=== PATIENT | male | born 1980 | race American Indian/Alaskan Native ===

== ENCOUNTER 2020-03-21 23:42 | Emergency (ER) | payer MEDICAID, SELFPAY ==
[2020-03-21 23:53] VITALS: BP 145/72; PULSE 70; RESP 16; TEMP 36.5; O2SAT 97; BMI 36.4
--- NOTE | 2020-03-22 00:11 | ED.GENADULT ---
HPI - General Adult General Chief complaint: Abdominal Pain Stated complaint: Left side abd swollen and feeling strange Time Seen by Provider: 03/21/20 23:50 Source: patient Mode of arrival: Ambulatory Limitations: no limitations History of Present Illness HPI narrative: 39-year-old male here for evaluation of left-sided abdominal pain and swelling and not feeling very well. He actually described it as not a pain but more of a discomfort on the left side of his abdomen. No nausea vomiting. No change in his bowel habits. No urinary symptoms. No fevers. He does have a history of diverticulitis and he states that this feels just like his prior episode of diverticulitis just at a different location. Has not tried anything for symptoms prior to arrival. Related Data Previous Rx's Medication Instructions Recorded amoxicillin-pot clavulanate 875 mg PO BID 14 Days #0 tab 08/03/16 [Augmentin] hydrocodone-acetaminophen 0 tab PO Q6HP PRN #15 tab 08/03/16 ondansetron [Zofran ODT] 4 mg SUBLINGUAL Q6HP PRN #20 odt 08/03/16 amoxicillin-pot clavulanate 1 tab PO BID 10 Days #20 tab 03/22/20 [Augmentin] Allergies Allergy/AdvReac Type Severity Reaction Status Date / Time No Known Allergies Allergy Uncoded 07/30/17 11:46 Review of Systems Constitutional Constitutional: Denies fever(s) Cardiovascular Cardiovascular: Denies chest pain and Denies dyspnea Respiratory Respiratory: Denies dyspnea Gastrointestinal Gastrointestinal: Reports abdominal pain, Denies melena, Denies change in bowel habits, Denies constipation, Denies diarrhea, Denies nausea and Denies vomiting Genitourinary Genitourinary: Denies dysuria Genitourinary: Denies dysuria Musculoskeletal Musculoskeletal: Denies arthralgias and Denies myalgias Integumentary/Breasts Skin/Breast: Denies lesions and Denies rash Neurologic Neurologic: Denies behavioral changes Psychiatric Psychiatric: Denies behavioral changes Hematologic/Lymphatic Hematologic/Lymphatic: Denies easy bleeding and Denies easy bruising Allergic/Immunologic Allergic/Immunologic: Denies urticaria Patient History Medical History Diverticulitis Family History (Updated 06/29/13 @ 00:00 by Christian Mcdonnell MD) Mother Hypertension DDD (degenerative disc disease) Social History Smoking Status: Never smoker Smoking Status: Never smoker alcohol intake frequency: other Substance Use Type: marijuana Exam Initial Vital Signs Initial Vital Signs: Vital Signs Temperature 97.7 F 03/21/20 23:53 Pulse Rate 70 03/21/20 23:53 Respiratory Rate 16 03/21/20 23:53 Blood Pressure 145/72 H 03/21/20 23:53 Pulse Oximetry 97 03/21/20 23:53 Const General: cooperative and comfortable Limitations: mental status not altered HENMT Head: normal to inspection and normocephalic Resp Effort & Inspection: normal respiratory effort GI Inspection: non-distended Palpation: soft, No firm, No guarding and No tender Back/Spine/Pelvis Back: No CVA tenderness Skin Lesions: no lesions Rashes: no rashes Neuro General: patient alert and patient awake Cognition: normal cognition Speech: speech normal Extrem General: normal to inspection and capillary refill normal Psych Appearance: grossly normal and well kempt Course Orders Ordered: Discontinued Medications Amoxicillin/Clavulanate Potassium (Amoxicillin/Clav 875/125 Mg) 1 tab PO NOW ONE Stop: 03/22/20 00:14 Last Admin: 03/22/20 00:16 Dose: 1 tab Documented by: TRACEY Ciprofloxacin (Ciprofloxacin 500 Mg Tablet) 500 mg PO NOW ONE Stop: 03/22/20 00:13 Metronidazole (Metronidazole 500 Mg Tablet) 500 mg PO NOW ONE Stop: 03/22/20 00:13 Vital Signs Vital signs: Vital Signs - 8 hr 03/21/20 23:53 Temperature 97.7 F Pulse Rate 70 Respiratory Rate 16 Blood Pressure 145/72 H Pulse Oximetry 97 Medical Decision Making [facility] Narrative Medical decision making narrative: Patient has a history of diverticulitis and despite in different locations states that his symptoms today feel just like his prior history. His vital signs are unremarkable. He has a very benign exam. Does not have a surgical abdomen. Had a discussion with him regarding his symptoms. Considered other etiologies such as kidney stone, bowel obstruction, appendicitis and other intra-abdominal surgical issues however given his benign presentation and his history of feel that treating him with oral antibiotics hand holding on any radiologic studies is warranted in this particular situation. I did have a discussion with the patient regarding this. He agreed to holding on a CT scan. We did discuss return precautions. He was given his 1st dose of antibiotics here in the emergency department and a prescription for remainder the course. He used Augmentin the last time that seemed to work for him. He expressed understanding and agreement. Discharge Plan Departure Patient Disposition: Home Clinical Impression: Abdominal pain, Diverticulitis Instructions: DI for Diverticulitis Activity Restrictions/Additional Instructions: Recommend you take the antibiotics as directed. Contact your primary provider for follow-up. Return to the emergency department for any new symptoms to include fevers, worsening pain, vomiting or any other new or worsening symptoms Prescriptions: New amoxicillin-pot clavulanate [Augmentin] 875-125 mg tablet 1 tab PO BID 10 Days Qty: 20 RF: 0 No Action hydrocodone-acetaminophen 5 MG/325 MG tablet 0 tab PO Q6HP PRNQty: 15 RF: 0 ondansetron [Zofran ODT] 4 MG tablet,disintegrating 4 mg Sublingual Q6HP PRNQty: 20 RF: 0 amoxicillin-pot clavulanate [Augmentin] 875 MG/125 MG tablet 875 mg PO BID 14 Days Qty: 0 RF: 0 Referrals: Christian Mcdonnell MD [Primary Care Provider] -
[2020-03-22] MEDS: AMOXICILLIN/CLAV 875/125 MG 1 TAB PO (00:16)
== END 2020-03-22 00:20 | disposition home or self-care (01) ==
PROVIDERS: Emergency Provider Emergency Medicine; Family Provider Family Medicine; PCP Family Medicine
DX: R10.9 Unspecified abdominal pain (principal); K57.92 Diverticulitis of intestine, part unspecified, without perforation or abscess without bleeding
CPT/HCPCS: 99281; 99283

== ENCOUNTER → 2020-06-26 09:19 | Outpatient (CLI) | payer MEDICAID, OTHER, SELFPAY ==
[2020-06-26 10:16] LABS: Add Manual Diff / Slide Review NO; Basophils Absolute Auto 100 /uL (0-100); Basophils Percent Auto 1.3 % (0-2); Eosinophils Absolute Auto 400 /uL (0-450); Eosinophils Percent Auto 4.8 % (2-4); Hematocrit 45.4 % (41-53); Hemoglobin 15.2 g/dL (13.5-17.5); Lymphocytes Absolute Auto 3100 /uL (1100-4500); Lymphocytes Percent Auto 33.9 % (25-40); Mean Corpuscular HGB Conc 33.4 % (30-36); Mean Corpuscular Hemoglobin 27.7 PG (26-34); Mean Corpuscular Volume 82.9 fL (80-100); Monocytes Absolute Auto 700 /uL (0-900); Monocytes Percent Auto 7.2 % (3-14); Neutrophils Absolute Auto 4900 /uL (1500-7000); Neutrophils Percent Auto 52.8 % (50-75); Platelet Count 284 X10^3/uL (150-400); Red Blood Cell Count 5.48 X10^6/uL (4.5-5.9); Red Cell Distribution Width 13.6 % (11.6-14.8); White Blood Cell Count 9.2 X10^3/uL (4.5-11.0)
[2020-06-26 11:01] LABS: Alanine Aminotransferase 44 IU/L (<50); Albumin 4.7 g/dL (3.5-5.0); Albumin Globulin Ratio 1.4 (1.0-2.8); Alkaline Phosphatase 125 U/L (38-126); Aspartate Aminotransferase 29 IU/L (17-59); BUN Creatinine Ratio 12.3 (6-22); Bilirubin Total 0.3 mg/dL (0.2-1.3); Blood Urea Nitrogen 10 mg/dL (9-20); Calcium 9.8 mg/dL (8.4-10.2); Carbon Dioxide 30 mmol/L (22-32); Chloride 104 mmol/L (98-107); Estimated Glomerular Filt Rate > 60.0 mL/min (>60); Globulin 3.4 g/dL (1.7-4.1); Glucose 95 mg/dL (70-100); HEMOLYSIS < 15 (0-50); Potassium 4.7 mmol/L (3.4-5.1); Sodium 139 mmol/L (137-145); Total Protein 8.1 g/dL (6.3-8.2)
== END ==
PROVIDERS: Family Provider Family Medicine; PCP Family Medicine; Referring Provider Family Medicine; Visit Provider Family Medicine
DX: R19.00 Intra-abdominal and pelvic swelling, mass and lump, unspecified site (principal)
CPT/HCPCS: 36415; 80053; 85025

== ENCOUNTER 2023-04-25 18:20 | Emergency (ER) | payer OTHER, SELFPAY ==
[2023-04-25] VITALS (7 sets, daily range): BP systolic 141–171; BP diastolic 84–96; PULSE 77–88; RESP 16–18; TEMP 36.6; O2SAT 94–97; BMI 38.0
[2023-04-25 19:02] LABS: Appearance Urine UA CLEAR; Bilirubin Urine UA NEGATIVE (NEGATIVE); Color Urine UA YELLOW; Glucose Urine UA 3+ g/dL (Negative); Ketones Urine UA NEGATIVE (NEGATIVE); Leukocyte Esterase Urine UA NEGATIVE (NEGATIVE); Nitrite Urine UA NEGATIVE (Negative); Occult Blood Urine UA TRACE-INTACT (Negative); Protein Urine UA NEGATIVE (Negative); Urobilinogen Urine UA 0.2 E.U./dL (0.2); pH Urine UA 6.5 (4.5-8.0)
[2023-04-25 19:15] LABS: Bacteria Urine None Seen; Culture Indicated Urine Cult Not Indicated; RBC Urine 0-1/HPF (0-5/HPF); Squamous Epithelial Cell Urine 0-1 /HPF (0-5/HPF); WBC Urine None Seen (0-5/HPF)
--- NOTE | 2023-04-25 20:06 | ED.ABDPAIN ---
HPI - Abdominal Pain General Chief Complaint: Abdominal Pain Stated Complaint: Abdominal Pain Time Seen by Provider: 04/25/23 18:43 History of Present Illness HPI narrative: 42-year-old male who presents with intermittent right upper quadrant abdominal pain is usually worse postprandial for 2 weeks. No other complaints or associated symptoms noted. Patient denies recent illness, no sick contacts or travel. No medications used for symptom relief. Patient arrives via private vehicle. Patient is ambulatory awake, alert, in no apparent distress and maintaining his own airway. Related Data Previous Rx's Medication Instructions Recorded sucralfate 1 gram tablet 1 g PO QID 30 days #120 tabs 04/25/23 Allergies Allergy/AdvReac Type Severity Reaction Status Date / Time No Known Allergies Allergy Uncoded 07/03/20 08:30 Review of Systems Review of Systems Narrative: See HPI for pertinent positives, otherwise review of systems negative Patient History Medical History Diverticulitis Family History Mother Hypertension DDD (degenerative disc disease) Social History marital status: Smoking Status: Never smoker alcohol intake: current (ON OCCASION ) substance use type: does not use Smoking Status: Never smoker alcohol intake frequency: other Substance Use Type: marijuana Exam Initial Vital Signs Initial Vital Signs: Vital Signs Temperature 97.8 F 04/25/23 18:22 Pulse Rate 88 04/25/23 18:22 Respiratory Rate 16 04/25/23 18:22 Blood Pressure 171/94 H 04/25/23 18:22 Pulse Oximetry 97 04/25/23 18:22 Oxygen Delivery Method Room Air 04/25/23 18:22 Const General: cooperative, healthy appearing, comfortable, well developed, well groomed and No acute distress HENMT Head: normal to inspection, normocephalic and atraumatic Nose: external nose normal and nares normal Mouth: oral mucosae normal Throat: posterior oropharynx normal Eyes General: Yes appearance normal, both eyes and all related structures Neck Neck: normal visual inspection Chest Chest: normal inspection of the chest Resp Effort & Inspection: normal respiratory effort, able to speak in complete sentences and no respiratory distress Cardio Rate: regular rate Rhythm: regular rhythm Pulses: radial pulses present GI Inspection: normal to inspection, obesity and no visible herniation Palpation: soft, No guarding, No hernia, No tender and No ascites Other: Exam deferred Skin General: no rashes or lesions noted Neuro General: patient alert, patient awake, patient oriented x3 and moves all extremities Extrem General: normal to inspection, full ROM and capillary refill normal Psych Appearance: grossly normal and well kempt Course Course Course Narrative: See MDM Orders Ordered: ED Orders 04/25/23 18:55 Urinalysis and Microscopic Stat Discontinued Medications Al Hydrox/Mg Hydrox/Simethicone 20 ml/ Lidocaine HCl 15 ml 0 ml PO NOW ONE Stop: 04/25/23 20:06 Last Admin: 04/25/23 20:12 Dose: 35 ml Documented By: ASHLEE Vital Signs Vital signs: Vital Signs - 8 hr 04/25/23 18:22 04/25/23 19:14 04/25/23 19:16 Temperature 97.8 F Pulse Rate 88 81 85 Respiratory Rate 16 18 Blood Pressure 171/94 H 141/84 H Pulse Oximetry 97 94 95 Oxygen Delivery Method Room Air Room Air 04/25/23 19:30 04/25/23 19:30 04/25/23 19:47 Temperature Pulse Rate 81 Respiratory Rate Blood Pressure 159/96 H 163/86 H Pulse Oximetry 95 Oxygen Delivery Method 04/25/23 19:47 04/25/23 20:00 04/25/23 20:00 Temperature Pulse Rate 77 83 Respiratory Rate Blood Pressure 158/84 H Pulse Oximetry 94 94 Oxygen Delivery Method 04/25/23 20:30 04/25/23 20:30 Temperature Pulse Rate 80 Respiratory Rate Blood Pressure 160/90 H Pulse Oximetry 94 Oxygen Delivery Method MDM - Abdominal Pain Differential Diagnosis Differential diagnosis: Likely abdominal pain, constipation, gastroenteritis, pancreatitis, small bowel obstruction and other (Gastritis, esophagitis, biliary colic) Lab Data Lab results narrative: UA not suggestive of UTI. Labs: Lab Results 04/25/23 Range/Units 18:55 Urine Color Yellow Urine Appearance Clear Urine pH 6.5 (4.5-8.0) Ur Specific Jackson 1.010 (1.000-1.035) Urine Protein Negative (Negative) Urine Glucose (UA) 3+ H (Negative) g/dL Urine Ketones Negative (NEGATIVE) Urine Occult Blood Trace-intact (Negative) Urine Nitrate Negative (Negative) Urine Bilirubin Negative (NEGATIVE) Urine Urobilinogen 0.2 (0.2) E.U./dL Ur Leukocyte Esterase Negative (NEGATIVE) Urine RBC 0-1/hpf (0-5/HPF) Urine WBC None seen (0-5/HPF) Ur Squamous Epith Cells 0-1 /hpf (0-5/HPF) Urine Bacteria None seen (None) Ur Culture Indicated? Cult not indicated MDM Narrative Medical decision making narrative: Patient presents with intermittent right upper quadrant abdominal pain that is consistent with gastritis though biliary colic remains in differential along with pancreatitis. Current vital signs are within normal limits/no actual. Patient is afebrile. Pulse oximetry 96% on room air, normal pulse oximetry. Patient appears clinically well and comfortable. Gi cocktail given with marked improvement in symptoms. Imaging and further diagnostic testing offered but declined by patient this patient's symptoms are most likely due to gastritis. Return precautions given. Sucralfate prescription given. PCP follow-up recommended within 1 week. Patient able to ambulate well without assistance at time of discharge. Discharge Plan Departure Patient Disposition: Home Clinical Impression: Gastritis Qualifiers: Gastritis type: unspecified gastritis Chronicity: acute Gastritis bleeding: without bleeding Qualified Code(s): K29.00 - Acute gastritis without bleeding Instructions: DI for Gastritis Prescriptions: New sucralfate 1 gram tablet 1 g PO QID 30 Days Qty: 120 0RF Referrals: Christian Mcdonnell MD [Primary Care Provider] - As soon as possible Stand Alone Forms: Patient Portal/API
[2023-04-25] MEDS: MAG HYDROX/ALUMINUM/SIMETH SUS 20 ML, LIDOCAINE VISCOUS 2% 15 ML PO (20:12)
== END 2023-04-25 20:44 | disposition home or self-care (01) ==
PROVIDERS: Emergency Provider Emergency Medicine; Family Provider Family Medicine; PCP Family Medicine
DX: K29.00 Acute gastritis without bleeding (principal)
CPT/HCPCS: 81001; 99283

== ENCOUNTER 2023-05-09 07:02 | Emergency (ER) | payer OTHER, SELFPAY ==
[2023-05-09] VITALS (11 sets, daily range): BP systolic 144–174; BP diastolic 86–97; PULSE 75–86; RESP 18–29; TEMP 36.6; O2SAT 94–97; BMI 36.1
--- NOTE | 2023-05-09 07:22 | ED_ITS ---
HPI - Abdominal Pain General Chief Complaint: Abdominal Pain Stated Complaint: MART pain Time Seen by Provider: 05/09/23 07:17 Source: patient and EMS Mode of arrival: EMS Limitations: no limitations History of Present Illness HPI narrative: 42-year-old male with history of diverticulitis. Patient presents with complaint of after mid abdominal pain and left flank pain. Patient states pain started in his back 1st and then moved around to the front. He states started yesterday. He has had some episodes on and off for the past several days. Sort of waxes and wanes in intensity. States he has had diverticulitis in the past but is typically lower in his abdomen closer to the groin. He does not normally get back or flank pain with it. Patient states he was here recently for similar symptoms accept that was on the right side of his upper abdomen. At that time he had received Protonix and started on Carafate. Patient denies any fevers or chills. Denies any nausea or vomiting. No chest pain or shortness of breath. Denies any diarrhea constipation, states formed stools with no black or blood. Denies any dysuria, urgency frequency or hematuria. Patient states did try some ibuprofen at home for pain. Denies any daily medications or prescriptions. No prior surgeries. No tobacco, no alcohol, occasional THC but no other recreational drugs. Primary care is Dr. Mcdonnell. He is accompanied by his . Related Data Previous Rx's Medication Instructions Recorded sucralfate 1 gram tablet 1 g PO QID 30 days #120 tabs 04/25/23 amoxicillin 875 mg-potassium 1 tab PO BID 10 days #20 tabs 05/09/23 clavulanate 125 mg tablet Allergies Allergy/AdvReac Type Severity Reaction Status Date / Time No Known Allergies Allergy Uncoded 04/29/23 09:59 Review of Systems Review of Systems ROS Unobtainable: All systems reviewed & are unremarkable except as noted in HPI and below Patient History Medical History Diverticulitis Family History Mother Hypertension DDD (degenerative disc disease) Social History marital status: Smoking Status: Never smoker alcohol intake: current (ON OCCASION ) substance use type: does not use Smoking Status: Never smoker alcohol intake frequency: other Substance Use Type: marijuana Exam Narrative Exam Narrative: GENERAL: Alert and oriented x three, obese male in moderate distress. HEENT: Head normocephalic, atraumatic, EOMI, pupils reactive, face symmetric, moist mucous membranes NECK: Supple, full range of motion CARDIOVASCULAR: Regular rate and rhythm without murmurs, rubs or gallops. RESPIRATORY: Breath sounds equal bilaterally, no wheezes rales or rhonchi. ABDOMEN: Soft, positive for left lower quadrant tenderness with some mild left upper quadrant tenderness. Normoactive bowel sounds all 4 quadrants. No guarding or rebound, rigidity, no mass, nondistended. : No CVA tenderness bilaterally. EXTREMITIES: Normal range of motion, no clubbing or edema. Neurovascularly intact NEUROLOGICAL: Cranial nerves II through XII grossly intact. Moving all extremities SKIN: Warm, dry, no petechiae, no rashes or lesions. Initial Vital Signs Initial Vital Signs: Vital Signs Pulse Rate 85 05/09/23 07:04 Blood Pressure 174/89 H 05/09/23 07:04 Pulse Oximetry 96 05/09/23 07:04 Course Orders Ordered: ED Orders 05/09/23 07:09 Complete Blood Count AUTO DIFF Stat Comprehensive Metabolic Panel Stat Lipase Stat 05/09/23 07:46 CT abdomen pelvis w con Stat 05/09/23 07:56 Urine Microscopic Stat 05/09/23 08:34 US abdomen limited Stat 05/09/23 09:41 BMP [Basic Metabolic Panel] Stat Discontinued Medications Sodium Chloride (Normal Saline 0.9%) 1,000 mls @ 1,000 mls/hr IV BOLUS ONE Stop: 05/09/23 08:21 Last Infusion: 05/09/23 08:33 Dose: Infused Documented By: Admin: 05/09/23 07:38 Dose: 1,000 mls/hr Documented By: JACKELINE Ketorolac Tromethamine (Ketorolac 30 Mg/Ml Vial) 15 mg IV NOW ONE Stop: 05/09/23 07:23 Last Admin: 05/09/23 07:38 Dose: 15 mg Documented By: JACKELINE Pantoprazole Sodium (Pantoprazole 40 Mg Vial) 40 mg IV NOW ONE Stop: 05/09/23 07:23 Last Admin: 05/09/23 07:37 Dose: 40 mg Documented By: CTS Vital Signs Vital signs: Vital Signs - 8 hr 05/09/23 07:04 05/09/23 07:04 05/09/23 07:06 Temperature 97.8 F Pulse Rate 85 79 Respiratory Rate 18 Blood Pressure 174/89 H 174/89 H Pulse Oximetry 96 94 Oxygen Delivery Method Room Air 05/09/23 07:15 05/09/23 07:15 05/09/23 07:30 Temperature Pulse Rate 78 Respiratory Rate 28 H Blood Pressure 165/88 H 151/94 H Pulse Oximetry 94 Oxygen Delivery Method 05/09/23 07:30 05/09/23 07:45 05/09/23 07:45 Temperature Pulse Rate 75 79 Respiratory Rate 26 H Blood Pressure 145/86 H Pulse Oximetry 95 97 Oxygen Delivery Method 05/09/23 08:02 05/09/23 08:03 05/09/23 08:03 Temperature Pulse Rate 82 82 Respiratory Rate 23 Blood Pressure 151/91 H Pulse Oximetry 96 96 Oxygen Delivery Method 05/09/23 08:15 05/09/23 08:15 05/09/23 08:30 Temperature Pulse Rate 83 Respiratory Rate 29 H Blood Pressure 144/86 H 152/92 H Pulse Oximetry 95 Oxygen Delivery Method 05/09/23 08:30 05/09/23 08:45 05/09/23 08:45 Temperature Pulse Rate 76 80 Respiratory Rate 27 H 28 H Blood Pressure 154/97 H Pulse Oximetry 94 95 Oxygen Delivery Method 05/09/23 10:47 05/09/23 10:47 Temperature Pulse Rate 86 Respiratory Rate Blood Pressure 156/94 H Pulse Oximetry 95 Oxygen Delivery Method MDM - Abdominal Pain Lab Data 05/09/23 07:09 05/09/23 09:41 Labs: Lab Results 05/09/23 05/09/23 05/09/23 Range/Units 07:09 07:56 09:41 WBC 14.1 H (4.5-11.0) X10^3/uL RBC 5.56 (4.5-5.9) X10^6/uL Hgb 14.6 (13.5-17.5) g/dL Hct 44.9 (41-53) % MCV 80.7 (80-100) fL MCH 26.2 (26-34) PG MCHC 32.5 (30-36) % RDW 13.9 (11.6-14.8) % Plt Count 329 (150-400) X10^3/uL Neut % (Auto) 75.7 H (50-75) % Lymph % (Auto) 17.1 L (25-40) % Clare % (Auto) 5.6 (3-14) % Eos % (Auto) 1.0 L (2-4) % Baso % (Auto) 0.6 (0-2) % Neut # (Auto) 65792 H (7678-3531) /uL Lymph # (Auto) 2400 (3490-7558) /uL Clare # (Auto) 800 (0-900) /uL Eos # (Auto) 100 (0-450) /uL Baso # (Auto) 100 (0-100) /uL Sodium 132 L 132 L (137-145) mmol/L Potassium 5.9 H 4.4 D (3.4-5.1) mmol/L Chloride 100 101 (98-107) mmol/L Carbon Dioxide 18 L 18 L (22-32) mmol/L BUN 12 10 (9-20) mg/dL Creatinine 0.56 L 0.53 L (0.66-1.25) mg/dL Estimated GFR > 60 > 60 (>60) mL/min BUN/Creatinine Ratio 21.4 18.9 (6-22) Glucose 261 H 236 H (70-100) mg/dL Calcium 8.8 8.4 (8.4-10.2) mg/dL Total Bilirubin 2.4 H (0.2-1.3) mg/dL AST 68 H (17-59) IU/L ALT 47 (<50) IU/L Alkaline Phosphatase 143 H (38-126) U/L Total Protein 9.8 H (6.3-8.2) g/dL Albumin 4.6 (3.5-5.0) g/dL Globulin 5.2 H (1.7-4.1) g/dL Albumin/Globulin Ratio 0.9 L (1.0-2.8) Lipase 1153 H (23-300) U/L Urine RBC 0-1/hpf (0-5/HPF) Urine WBC None seen (0-5/HPF) Ur Squamous Epith Cells None seen (0-5/HPF) Urine Bacteria None seen (None) Ur Culture Indicated? Cult not indicated Point of care testing: Urine Dip Bedside Urine Glucose 1000 mg/dl Bedside Urine Bilirubin - Negative Bedside Urine Ketone +++ 80 Urine Specific Orange 1.020 Bedside Urine Occult Blood +/- Bedside Urine pH 6.0 Bedside Urine Protein +/- 15 Bedside Urine Urobilinogen - Negative Bedside Urine Nitrite - Negative Bedside Urine Leukocytes - Negative Esterase Imaging Data CT scan - abdomen/pelvis: Radiologist's Impression: Kwame Collins??42??M??1980 ? Allergy/Adv: [No Known Allergies] Close Abdomen/Pelvis CT (Signed) Divya Boo - 05/09/23 Launch?Image [address] [address] [address] Scan Report Signed Patient: Kwame Collins MR#: [id number] : 1980 Acct:[id number] Age/Sex: 42 / M Date of Service: 05/09/23 Loc: ED Accession Number: [id number] Procedure: CT abdomen pelvis w con Ordering Provider: Allyson Maldonado D.O. PROCEDURE: CT ABDOMEN PELVIS W CON INDICATIONS: LLQ/flank pain, hx diveriticulitis TECHNIQUE: After the administration of intravenous contrast, axial sections acquired from the lung bases to the pubic symphysis. Coronal and sagittal reformats were performed. For radiation dose reduction, the following was used: automated exposure control, adjustment of mA and/or kV according to patient size. COMPARISON: [facility], CT, ABDOMEN/PELVIS WITH CONTRAST, 08/03/2016, 5:24. FINDINGS: Image quality: Diagnostic. Lower Chest: No significant findings. ABDOMEN: Liver: No solid mass. Prominent hepatic steatosis. Liver is enlarged measuring 23.6 cm. Gallbladder: No radiopaque gallstones or wall thickening. Biliary ducts: No biliary dilation. Pancreas: No ductal dilation. Spleen: Size is within normal limits. Adrenal Glands: Unchanged left adrenal nodule. Kidneys and Ureters: No hydronephrosis. No solid mass. No complex renal cystic lesion which requires follow up. Stomach and Bowel: No obstruction. There is. Appendix is normal. Colonic diverticula are present. There is minimal appearance of associated pericolonic stranding within the distal descending colon. No free fluid. No free air. Ventral Wall: No hernia. Abdominal Nodes: No retroperitoneal or mesenteric adenopathy by size criteria. Vessels: Aorta and inferior vena cava are normal in size. PELVIS: Pelvic Organs: Unremarkable. Bladder: Unremarkable. Pelvic Nodes: No enlarged lymph nodes. Miscellaneous: No inguinal hernias are seen. Bones: No aggressive osseous abnormality. IMPRESSION: Focal loop of descending colon demonstrating diverticula and mild pericolonic inflammatory change suggestive of focal colitis secondary to diverticulitis. No abscess. Dictated by: Divya Boo M.D. on 05/09/2023 at 8:16 Approved by: Divya Boo M.D. on 05/09/2023 at 8:18 US - abdomen: Radiologist's Impression: [address] [address] XRay Report? Signed Patient: Ruchi Beach MR#: [id number] : 05/12/1983 Acct:[id number] Age/Sex: 39 / F Date of Service: 05/09/23 Loc: ED Accession Number: [id number]? ? Procedure: XR chest 1V Ordering Provider: Allyson Maldonado D.O. PROCEDURE:? XR CHEST 1V ? INDICATIONS:? chest pain ? TECHNIQUE:? One view of the chest was acquired.?? ? COMPARISON:? [facility], CR, XR CHEST 1V, 07/07/2018, 21:30. ? FINDINGS:?? ? Surgical changes and devices:? None.?? ? Lungs and pleura:? Lungs are clear.? No pleural effusions or pneumothorax.?? ? Mediastinum:? Mediastinal contours appear normal.? Heart size is normal.?? ? Bones and chest wall:? No suspicious bony lesions.? Overlying soft tissues appear? unremarkable.? IMPRESSION:?? ? No acute pulmonary process. ? ? ? Dictated by: Divya Boo M.D. on 05/09/2023 at 8:46? ? ? Approved by: Divya Boo M.D. on 05/09/2023 at 8:47? ? MDM Narrative Medical decision making narrative: 42-year-old male with history of diverticulitis who has abdominal pain on the left with flank pain. Patient states symptoms are little bit different than his prior episodes of diverticulitis although he is tender in the left lower quadrant examination. Suspect diverticulitis but kidney stone is also in the differential. Patient is slightly hypertensive, no tachycardia afebrile without any hypoxia. Plan for labs, pain medication and CT abdomen pelvis as well as urine. Patient received fluids and Toradol and pantoprazole, patient is feeling more comfortable after Toradol. Labs, patient has a white count of 14 leftward shift normal hemoglobin and platelets. Sodium is 132, potassium 5.9 does have moderate hemolysis. CO2 is 18 with creatinine 0.56 BUN 12, glucose 261 with a total bili 2.4 AST of 6.8 ALT of 47 alk-phos of 143 and a lipase of 1153. Anion gap of 14 with glucose of 261. Patient does not have any abdominal pain on the right upper quadrant. It has a hole in the left lower quadrant. Urine CT abdomen pelvis-shows prominent hepatic steatosis liver is enlarged at 23.6 cm but no acute changes to the gallbladder, no changes to the kidney no hydro but patient does have focal lucid descending colon demonstrating diverticula and mild pericolonic inflammatory changes testing focal colitis secondary to diverticulitis with no abscess. Because of patient's abdominal lab abnormalities abdominal ultrasound was obtained and showed echogenic liver typically represents fatty infiltration although nonspecific, gallbladder is sonographically normal no gallstones wall is 2 point 0 mm no pericholecystic fluid no sonographic Gilliam's sign biliary tree is not dilated common bile duct measures 4.6 mm. Patient does have diverticulitis today, does also have some elevations in his LFTs with a mild pancreatitis. Potassium slightly elevated but maybe secondary hemolysis. Does have an anion gap of 4 with a CO2 of 18 and a glucose of 261, after a L fluids these were rechecked potassium is appropriate at 4.4, CO2 is 18 sodium is 132 glucose is 236. No formal diagnosis of diabetes but suspected. Patient does not have any right upper quadrant abdominal pain but does have some left lower quadrant pain on examination. Case discussed with Dr. Watson, patient is currently asymptomatic right upper quadrant, his lipase and bilirubin are elevated he does have pain but it is only in the left lower quadrant and does have diverticulitis. She discussed it feeling well could follow up outpatient for recheck with treatment for his diverticulitis at this time. Discussed all this with patient including his repeat labs which showed glucose still in the 200 range, potassium is improved. CO2 still 18. Patient states he feels much improved. He notes that he was diabetic before when he was drinking alcohol regularly he quit and was cleared for diabetes but states he has gained some weight since then. He does have follow up with primary care. Reviewed his labs he states he has not had any right upper quadrant pain persistent since the 5th and after discussion that he does have a mild pancreatitis and elevated liver enzyme decision was made for patient to follow up with primary care for recheck of labs. Copy of his labs was provided. We will treat for diverticulitis. Discussed return precautions with patient and family both at bedside. Discharge Plan Departure Patient Disposition: Home Clinical Impression: Diverticulitis, Elevated liver enzymes Instructions: DI for Diverticulitis Activity Restrictions/Additional Instructions: Please follow-up with your physician for recheck. Your labs do show your glucose is elevated recommend follow up for re-evaluation for diabetes with a hemoglobin A1c. Your liver enzymes are also somewhat elevated, as well as her pancreatic enzyme, your ultrasound and CT shows an enlarged liver but no other changes. As your pain has resolved in the right upper abdomen these labs maybe trending down words but need to be rechecked to make sure they are improving. Your CT imaging also shows diverticulitis on the left side of her abdomen consistent with your pain today. You may take Tylenol up to a 1000 mg every 6 hours as needed for pain and/or ibuprofen up to 600 mg every 6 hours as needed. Take antibiotics until completed. One tablet every 12 hours for 10 days. Prescription sent to [facility] in [place]. I hope you continue to feel improved if you are having increasing abdominal back or flank pain, fevers greater than 100.4 F, persistent vomiting, new black or bloody stools, lightheadedness or passing out or other new or concerning changes please return. Prescriptions: New amoxicillin-pot clavulanate 875-125 mg tablet 1 tab PO BID 10 Days Qty: 20 0RF No Action sucralfate 1 gram tablet 1 g PO QID 30 Days Qty: 120 0RF Referrals: Christian Mcdonnell MD [Primary Care Provider] - Stand Alone Forms: Patient Portal/API
[2023-05-09] MEDS: PANTOPRAZOLE 40 MG VIAL IV (07:37)
[2023-05-09 07:38] LABS: Alanine Aminotransferase 47 IU/L (<50); Albumin 4.6 g/dL (3.5-5.0); Albumin Globulin Ratio 0.9 (1.0-2.8); Alkaline Phosphatase 143 U/L (38-126); Aspartate Aminotransferase 68 IU/L (17-59); BUN Creatinine Ratio 21.4 (6-22); Bilirubin Total 2.4 mg/dL (0.2-1.3); Blood Urea Nitrogen 12 mg/dL (9-20); Calcium 8.8 mg/dL (8.4-10.2); Carbon Dioxide 18 mmol/L (22-32); Chloride 100 mmol/L (98-107); Estimated Glomerular Filt Rate > 60 mL/min (>60); Globulin 5.2 g/dL (1.7-4.1); Glucose 261 mg/dL (70-100); Lipase 1153 U/L (23-300); Sodium 132 mmol/L (137-145); Total Protein 9.8 g/dL (6.3-8.2)
[2023-05-09] MEDS: SODIUM CHLORIDE 0.9% 1,000 ML 1000 ML IV (07:38)
[2023-05-09] MEDS: KETOROLAC 30 MG/ML VIAL 15 MG IV (07:38)
[2023-05-09 07:40] LABS: HEMOLYSIS 65 (0-50); Potassium 5.9 mmol/L (3.4-5.1)
--- NOTE | 2023-05-09 07:46 | DI.CT.S_ITS ---
PROCEDURE: CT ABDOMEN PELVIS W CON INDICATIONS: LLQ/flank pain, hx diveriticulitis TECHNIQUE: After the administration of intravenous contrast, axial sections acquired from the lung bases to the pubic symphysis. Coronal and sagittal reformats were performed. For radiation dose reduction, the following was used: automated exposure control, adjustment of mA and/or kV according to patient size. COMPARISON: [facility], CT, ABDOMEN/PELVIS WITH CONTRAST, 08/03/2016, 5:24. FINDINGS: Image quality: Diagnostic. Lower Chest: No significant findings. ABDOMEN: Liver: No solid mass. Prominent hepatic steatosis. Liver is enlarged measuring 23.6 cm. Gallbladder: No radiopaque gallstones or wall thickening. Biliary ducts: No biliary dilation. Pancreas: No ductal dilation. Spleen: Size is within normal limits. Adrenal Glands: Unchanged left adrenal nodule. Kidneys and Ureters: No hydronephrosis. No solid mass. No complex renal cystic lesion which requires follow up. Stomach and Bowel: No obstruction. There is. Appendix is normal. Colonic diverticula are present. There is minimal appearance of associated pericolonic stranding within the distal descending colon. No free fluid. No free air. Ventral Wall: No hernia. Abdominal Nodes: No retroperitoneal or mesenteric adenopathy by size criteria. Vessels: Aorta and inferior vena cava are normal in size. PELVIS: Pelvic Organs: Unremarkable. Bladder: Unremarkable. Pelvic Nodes: No enlarged lymph nodes. Miscellaneous: No inguinal hernias are seen. Bones: No aggressive osseous abnormality. IMPRESSION: Focal loop of descending colon demonstrating diverticula and mild pericolonic inflammatory change suggestive of focal colitis secondary to diverticulitis. No abscess. Dictated by: Divya Boo M.D. on 05/09/2023 at 8:16 Approved by: Divya Boo M.D. on 05/09/2023 at 8:18
[2023-05-09 08:14] LABS: Bacteria Urine None Seen; Culture Indicated Urine Cult Not Indicated; RBC Urine 0-1/HPF (0-5/HPF); Squamous Epithelial Cell Urine None Seen (0-5/HPF); WBC Urine None Seen (0-5/HPF)
[2023-05-09 08:19] LABS: Add Manual Diff / Slide Review NO; Basophils Absolute Auto 100 /uL (0-100); Basophils Percent Auto 0.6 % (0-2); Eosinophils Absolute Auto 100 /uL (0-450); Hematocrit 44.9 % (41-53); Hemoglobin 14.6 g/dL (13.5-17.5); Lymphocytes Absolute Auto 2400 /uL (1100-4500); Lymphocytes Percent Auto 17.1 % (25-40); Mean Corpuscular HGB Conc 32.5 % (30-36); Mean Corpuscular Hemoglobin 26.2 PG (26-34); Mean Corpuscular Volume 80.7 fL (80-100); Monocytes Absolute Auto 800 /uL (0-900); Monocytes Percent Auto 5.6 % (3-14); Neutrophils Absolute Auto 10600 /uL (1500-7000); Neutrophils Percent Auto 75.7 % (50-75); Platelet Count 329 X10^3/uL (150-400); Red Blood Cell Count 5.56 X10^6/uL (4.5-5.9); Red Cell Distribution Width 13.9 % (11.6-14.8); White Blood Cell Count 14.1 X10^3/uL (4.5-11.0)
--- NOTE | 2023-05-09 08:34 | DI.US.S_ITS ---
PROCEDURE: US ABDOMEN LIMITED INDICATIONS: ABNORMAL LABS TECHNIQUE: Real-time focused scanning was performed of the abdomen, with image documentation. COMPARISON: None. FINDINGS: Liver is mildly enlarged measuring 20.7 centimeters in long axis. Liver is diffusely echogenic. No intrahepatic biliary tree dilatation. Gallbladder is sonographically normal. No gallstones. Gallbladder wall measures 2.0 millimeters. No pericholecystic fluid. No sonographic Gilliam sign. Biliary tree is nondilated. Common bile duct measures 4.6 millimeters. Pancreas suboptimally visualized due to bowel gas. No gross sonographic abnormality identified in the pancreas. IMPRESSION: Echogenic liver. Finding typically represents fatty infiltration; however, finding is nonspecific and correlation with clinical and laboratory findings is recommended to exclude other etiologies including hepatic cirrhosis. Dictated by: Yin Perez MD, PhD on 05/09/2023 at 9:12 Approved by: Yin Perez MD, PhD on 05/09/2023 at 9:13
[2023-05-09 10:02] LABS: BUN Creatinine Ratio 18.9 (6-22); Blood Urea Nitrogen 10 mg/dL (9-20); Calcium 8.4 mg/dL (8.4-10.2); Carbon Dioxide 18 mmol/L (22-32); Chloride 101 mmol/L (98-107); Estimated Glomerular Filt Rate > 60 mL/min (>60); Glucose 236 mg/dL (70-100); Potassium 4.4 mmol/L (3.4-5.1); Sodium 132 mmol/L (137-145)
[2023-05-09 10:03] LABS: HEMOLYSIS 80 (0-50)
== END 2023-05-09 11:13 | disposition home or self-care (01) ==
PROVIDERS: Emergency Provider Emergency Medicine; Family Provider Family Medicine; PCP Family Medicine
DX: K57.92 Diverticulitis of intestine, part unspecified, without perforation or abscess without bleeding (principal); R07.9 Chest pain, unspecified; R74.8 Abnormal levels of other serum enzymes
CPT/HCPCS: 36415; 74177; 76705; 80048; 80053; 81003; 81015; 83690; 85025; 96361; 96374; 96375; 99284; 99285; C9113; J1885

== ENCOUNTER 2024-08-19 08:35 | Inpatient (IN) | payer OTHER, SELFPAY ==
[2024-08-19] VITALS (15 sets, daily range): BP systolic 141–166; BP diastolic 78–101; PULSE 62–93; RESP 17–19; TEMP 36.1–37.1; O2SAT 93–100; BMI 37.3
[2024-08-19 09:02] LABS: Add Manual Diff / Slide Review NO; Basophils Absolute Auto 200 /uL (0-100); Basophils Percent Auto 1.1 % (0-2); Eosinophils Absolute Auto 200 /uL (0-450); Eosinophils Percent Auto 1.4 % (2-4); Hematocrit 47.5 % (41-53); Hemoglobin 16.4 g/dL (13.5-17.5); Lymphocytes Absolute Auto 3700 /uL (1100-4500); Lymphocytes Percent Auto 20.5 % (25-40); Mean Corpuscular HGB Conc 34.4 % (30-36); Mean Corpuscular Hemoglobin 28.7 PG (26-34); Mean Corpuscular Volume 83.2 fL (80-100); Monocytes Absolute Auto 1200 /uL (0-900); Neutrophils Absolute Auto 12500 /uL (1500-7000); Platelet Count 291 X10^3/uL (150-400); Red Blood Cell Count 5.71 X10^6/uL (4.5-5.9); Red Cell Distribution Width 13.7 % (11.6-14.8); White Blood Cell Count 17.8 X10^3/uL (4.5-11.0)
[2024-08-19 10:02] LABS: Alanine Aminotransferase 90 IU/L (<50); Albumin Globulin Ratio 1.3 (1.0-2.8); Alkaline Phosphatase 133 U/L (38-126); Aspartate Aminotransferase 60 IU/L (17-59); BUN Creatinine Ratio 15.2 (6-22); Bilirubin Total 1.1 mg/dL (0.2-1.3); Blood Urea Nitrogen 12 mg/dL (9-20); Calcium 9.7 mg/dL (8.4-10.2); Carbon Dioxide 24 mmol/L (22-32); Chloride 100 mmol/L (98-107); Estimated Glomerular Filt Rate > 60 mL/min (>60); Glucose 204 mg/dL (70-99); HEMOLYSIS < 15 (0-50); Lipase 111 U/L (23-300); Sodium 137 mmol/L (137-145)
[2024-08-19 10:04] LABS: Bacteria Urine None Seen; Culture Indicated Urine Cult Not Indicated; RBC Urine 0-1/HPF (0-5/HPF); Squamous Epithelial Cell Urine 0-1 /HPF (0-5/HPF); Urine Volume 10mL (spun); WBC Urine 0-1/HPF (0-5/HPF)
--- NOTE | 2024-08-19 10:17 | DI.CT.S_ITS ---
PROCEDURE: CT ABDOMEN PELVIS W CON INDICATIONS: LLQ pain after eating, r/o diverticulitis vs ureteral stone TECHNIQUE: After the administration of intravenous contrast, axial sections acquired from the lung bases to the pubic symphysis. Coronal and sagittal reformats were performed. For radiation dose reduction, the following was used: automated exposure control, adjustment of mA and/or kV according to patient size. COMPARISON: [facility], CT, CT ABDOMEN PELVIS W CON, 05/09/2023, 8:02. FINDINGS: Image quality: Diagnostic. Lower Chest: No significant findings. ABDOMEN: Liver: No solid mass. Moderate diffuse hepatic steatosis, as before. Hepatomegaly, as before. Gallbladder: No radiopaque gallstones or wall thickening. Biliary ducts: No biliary dilation. Pancreas: No ductal dilation. Spleen: Size is within normal limits. Adrenal Glands: No adrenal nodules. Kidneys and Ureters: No hydronephrosis. There is a likely renal cell carcinoma off the lower pole of the left kidney. It measures approximately 3.2 x 4.0 cm. It was much less perceptible on the previous study. Stomach and Bowel: There is diverticulosis involving the descending colon and sigmoid. There is extensive inflammatory change in the adjacent fat anteriorly at the level of the junction between the descending colon and the sigmoid. Findings most likely represent acute diverticulitis. However, cannot exclude epiploic appendagitis, as the inflammatory change extends to a greater extent anterior to what is typically seen no free air or free fluid or abscess cavity.. Peritoneum: No abnormal intraperitoneal fluid. No free air. Ventral Wall: No significant ventral hernia. Abdominal Nodes: No retroperitoneal or mesenteric adenopathy by size criteria. Vessels: Aorta and inferior vena cava are normal in size. PELVIS: Pelvic Organs: Unremarkable. Bladder: No bladder wall thickening, accounting for underdistention. Pelvic Nodes: No enlarged lymph nodes. Miscellaneous: No inguinal hernias are seen. Bones: No aggressive osseous abnormality. IMPRESSION: 1. Acute recurrent diverticulitis versus epiploic appendagitis. 2. Unsuspected left renal mass, likely renal cell carcinoma, measuring 3.2 x 4.0 cm. Recommend referral to a urologist for resection. 3. No metastatic lesions identified. 4. Moderate diffuse hepatic steatosis, hepatomegaly, as before. Comment: An Urgent Findings note was created in PACS to ensure notification of the referring clinician. Dictated by: Soren Brian M.D. on 08/19/2024 at 10:59 Approved by: Soren Brian M.D. on 08/19/2024 at 11:13
[2024-08-19] MEDS: SODIUM CHLORIDE 0.9% 1,000 ML 1000 ML IV (10:47)
[2024-08-19] MEDS: KETOROLAC 30 MG/ML VIAL IV (10:47)
[2024-08-19] MEDS: AMPICILLIN/SULBACTAM 3 GM 3 GM in SODIUM CHLORIDE 0.9% 100 ML IV (13:42)
--- NOTE | 2024-08-19 15:48 | PM.HP.IH.1 ---
History of Present Illness History of Present Illness Date Patient Seen: 08/19/24 Time Patient Seen: 17:00 Chief complaint: Stomach issues, possible diverticulitis Narrative: 43-year-old male who comes in today from the emergency department with sudden onset of abdominal pain he was in his normal state of health yesterday. Feeling just fine. Last evening he began to have left lower quadrant abdominal pain moderate to severe in intensity felt like a knife-like stabbing pain in his lower abdomen there was radiation through his abdomen up into his chest. Pain was on and off throughout the night he said he did not sleep well. Patient states was a little bit and nauseated but did not throw up. He has had normal bowel movements. Patient did not feel hungry. He says he did not have a fever. Patient had similar pain symptoms in May this year with a diagnosis of diverticulosis. He was treated him with antibiotics at this time. On the emergency department his blood pressure was a little bit elevated he was afebrile patient has an elevated white blood cell count 17.8. Patient had a glucose of 204 patient had elevation of his liver enzymes. Patient had a CT scan done which shows recurrent diverticulosis or epiploic appendagitis patient also has a left renal mass likely renal cell carcinoma 4 cm in diameter because of patient's white blood cell count discomfort and CT scan findings he was admitted to the hospital. [facility] Medical History Diverticulitis Family History Mother Hypertension DDD (degenerative disc disease) Social History marital status: household members: spouse Smoking Status: Current some day smoker alcohol intake: former substance use type: does not use Meds Home Medications and Allergies Home Medications Medication Instructions Recorded Confirmed Type simethicone 40 mg chewable tablet 40 mg PO DAILY 08/19/24 08/19/24 History Allergies Allergy/AdvReac Type Severity Reaction Status Date / Time No Known Allergies Allergy Verified 08/19/24 13:33 Exam Vital Signs (past 8 hours): - 08/19/24 08:50 08/19/24 08:56 08/19/24 09:00 Temperature 97.9 F Pulse Rate 81 84 80 Respiratory Rate 17 Blood Pressure 166/89 H Pulse Oximetry 96 93 94 Oxygen Delivery Method Room Air 08/19/24 09:30 08/19/24 09:32 08/19/24 09:32 Temperature Pulse Rate 84 Respiratory Rate Blood Pressure 159/91 H Pulse Oximetry 100 96 Oxygen Delivery Method 08/19/24 10:00 08/19/24 10:00 08/19/24 10:30 Temperature Pulse Rate 84 93 H Respiratory Rate Blood Pressure 154/90 H Pulse Oximetry 95 96 Oxygen Delivery Method 08/19/24 10:45 08/19/24 10:45 08/19/24 11:00 Temperature Pulse Rate 82 73 Respiratory Rate Blood Pressure 159/89 H Pulse Oximetry 96 96 Oxygen Delivery Method 08/19/24 11:00 08/19/24 11:30 08/19/24 11:30 Temperature Pulse Rate 62 Respiratory Rate Blood Pressure 152/87 H 141/96 H Pulse Oximetry 95 Oxygen Delivery Method 08/19/24 13:34 08/19/24 13:34 08/19/24 14:00 Temperature Pulse Rate 76 Respiratory Rate Blood Pressure 158/86 H 163/101 H Pulse Oximetry 96 Oxygen Delivery Method 08/19/24 14:00 08/19/24 14:30 08/19/24 14:30 Temperature Pulse Rate 81 77 Respiratory Rate Blood Pressure 165/94 H Pulse Oximetry 97 96 Oxygen Delivery Method Oxygen Delivery Method Room Air Narrative Exam Narrative: General alert no apparent distress HEENT pupils equal round and reactive Cardio S1-S2 regular rate and rhythm Respiratory lungs are clear through auscultation Abdomen soft tenderness in left lower quadrant without rebound or guarding Extremities full range of motion Neurologic is grossly intact Objective Labs 08/19/24 08:53 08/19/24 08:53 Labs: Laboratory Results - last 24 hr 08/19/24 08/19/24 08:53 09:30 WBC 17.8 H RBC 5.71 Hgb 16.4 Hct 47.5 MCV 83.2 MCH 28.7 MCHC 34.4 RDW 13.7 Plt Count 291 Neut % (Auto) 70.0 Lymph % (Auto) 20.5 L [place] % (Auto) 7.0 Eos % (Auto) 1.4 L Baso % (Auto) 1.1 Neut # (Auto) 30477 H Lymph # (Auto) 3700 [place] # (Auto) 1200 H Eos # (Auto) 200 Baso # (Auto) 200 H Sodium 137 Potassium 4.0 Chloride 100 Carbon Dioxide 24 BUN 12 Creatinine 0.79 Estimated GFR > 60 BUN/Creatinine Ratio 15.2 Glucose 204 H Calcium 9.7 Total Bilirubin 1.1 AST 60 H ALT 90 H Alkaline Phosphatase 133 H Total Protein 9.0 H Albumin 5.0 Globulin 4.0 Albumin/Globulin Ratio 1.3 Lipase 111 Urine RBC 0-1/hpf Urine WBC 0-1/hpf Ur Squamous Epith Cells 0-1 /hpf Urine Bacteria None seen Ur Culture Indicated? Cult not indicated Vol Urine Centrifuged 10ml (spun) Assessment & Plan Assessment and plan (1) Acute diverticulitis: Status: Acute Plan: acute diverticulitis patient with diverticulitis or epiploic appendagitis of his left lower quadrant area of his abdomen. Patient has elevated white blood cell count. He was admitted to the hospital for further antibiotics patient will be started on Zosyn 3.125 mg q.8 hours. Patient will be provided with oral pain medication in the soft diet. Will monitor vital signs temperature and blood pressure while he is here in the hospital. Patient will have further monitoring of his blood counts to determine that he has had improvement of his white blood cells. There is no signs of abscess on CT scan. Left renal mass. Patient with renal mass 4 cm in diameter. Concerning for renal cell carcinoma. Discussed with patient today. This will need follow-up with Urology as an outpatient. There was no signs of lymphadenopathy at this time. Hyperglycemia. Patient with a blood sugar greater than 200 which would be consistent with the diabetes. Will obtain a hemoglobin A1c place him on insulin sliding scale this would be a new diagnosis for him. He says he has had elevated blood sugars in the past he is currently not on any diabetic medication. Hypertension patient's blood pressure is elevated place patient on lisinopril 20 mg a day DVT prophylaxis Lovenox Admission to the hospital for IV antibiotics anticipate length of stay greater than 2 midnights Time-Based Coding :: [TOTAL MINUTES] spent with patient and on the chart (including review of chart, obtaining history, exam, reviewing outside data, placing orders, documenting exam and treatment plan, and counseling patient) on [DATE]. PROFEE Physical Education Department Chair Document charge(s): Yes Charge Codes Initial inpatient/observation care: 57781
[2024-08-19] MEDS: SODIUM CHLORIDE 0.45% 1,000 ML 100 ML IV (16:23)
[2024-08-19] MEDS: PIPERACILLIN/TAZO 3.375 GM in SODIUM CHLORIDE 0.9% 100 ML IV ×2 (16:23→23:35)
[2024-08-19] MEDS: INSULIN LISPRO 100 UNIT/ML 3ML VIAL SUBCUT (17:38)
[2024-08-19 18:19] LABS: Hemoglobin A1C% w Est Avg Glu 7.8 % (4.0-6.0)
--- NOTE | 2024-08-19 18:55 | PC.ADMIT ---
[id number] [facility] [address] Admission Note: Pt arrived via w/c from ED to room 224 at approximately 16:10. Pt able to ambulate in room, A&Ox4, declining gown at this time. BP continues to be elevated, provider Dr. Mcdonnell notified. Pt oriented to room and call light. Care ongoing. The patient,Kwame Collins,43 y/o, was given written information regarding hospital policies, unit procedures and contact persons. Patient's smoking status: Current some day smoker. Vital Signs - 8 hr 08/19/24 11:00 08/19/24 11:00 08/19/24 11:30 Temperature Pulse Rate 73 62 Respiratory Rate Blood Pressure 152/87 H Pulse Oximetry 96 95 Oxygen Delivery Method Oxygen Flow Rate 08/19/24 11:30 08/19/24 13:34 08/19/24 13:34 Temperature Pulse Rate 76 Respiratory Rate Blood Pressure 141/96 H 158/86 H Pulse Oximetry 96 Oxygen Delivery Method Oxygen Flow Rate 08/19/24 14:00 08/19/24 14:00 08/19/24 14:30 Temperature Pulse Rate 81 Respiratory Rate Blood Pressure 163/101 H 165/94 H Pulse Oximetry 97 Oxygen Delivery Method Oxygen Flow Rate 08/19/24 14:30 08/19/24 15:44 08/19/24 16:26 Temperature 97.0 F L Pulse Rate 77 79 Respiratory Rate 18 Blood Pressure 158/78 H Pulse Oximetry 96 99 Oxygen Delivery Method Room Air Oxygen Flow Rate 0
--- NOTE | 2024-08-19 20:12 | ED.ABDPAIN ---
HPI - Abdominal Pain General Chief Complaint: Abdominal Pain Stated Complaint: Stomach issues, possible diverticulitis Time Seen by Provider: 08/19/24 09:34 Source: patient Mode of arrival: Ambulatory History of Present Illness HPI narrative: This 43-year-old male presents to the emergency department with the complaint of left lower quadrant pain over the past couple of days. He has had diverticulitis 2 years ago. He claims that he ate a piece of bread with seeds in it in the last 2 days. He has had no emesis. No high fever. He has had no dysuria or hematuria. Past medical history reveals a ventral hernia. Related Data Home Medications Medication Instructions Recorded Confirmed simethicone 40 mg chewable tablet 40 mg PO DAILY 08/19/24 08/19/24 Allergies Allergy/AdvReac Type Severity Reaction Status Date / Time No Known Allergies Allergy Verified 08/19/24 13:33 Review of Systems Review of Systems Narrative: Review of systems are all negative except abdomen reveals left lower quadrant pain without vomiting and without fever. Patient History Medical History Diverticulitis Family History Mother Hypertension DDD (degenerative disc disease) Social History marital status: household members: spouse alcohol intake: former substance use type: does not use Smoking Status: Current some day smoker alcohol intake frequency: other Exam Initial Vital Signs Initial Vital Signs: Vital Signs Temperature 97.9 F 08/19/24 08:50 Pulse Rate 81 08/19/24 08:50 Respiratory Rate 17 08/19/24 08:50 Blood Pressure 166/89 H 08/19/24 08:50 Pulse Oximetry 96 08/19/24 08:50 Oxygen Delivery Method Room Air 08/19/24 08:50 Const Other: Anxious white middle-aged male who appears uncomfortable HENSD HENSD Other: LEONARDO. Mouth is moist Neck Other: Supple, normal range of motion, no bruits. Resp Other: Clear to P&A. Cardio Other: Regular rhythm without murmur. GI Other: Left lower quadrant tenderness of moderately severe degree with slight guarding. Hypoactive bowel sounds. No flank tenderness. Neuro Other: Oriented x3. No focal deficits. Extrem Other: Normal range of motion no edema no calf tenderness Course Course Course Narrative: This 43 year old male presents to the emergency department with left lower quadrant pain after eating a couple of days ago. He has past history of diverticulitis. Lab today reveals a WBC of 17.8 which is greatly elevated. Glucose is slightly elevated. Electrolytes are within normal limits. Urine reveals 3+ glucose. CT of the abdomen and pelvis reveals diverticulitis without abscess formation or perforation apparent. This is between the descending colon sigmoid colon. There is an incidental finding of a left renal mass which may be renal carcinoma. It is suggested that this be followed up with Urology in the near future. Dr. Glez on either the surgeon on-call was consulted to make certain he had no surgical concerns about the patient's findings in his colon. Did not and suggested antibiotics. Unasyn 3 g IV at already been started. He did agree with the fact that the patient should be admitted to the hospitalist. Urology has been consulted at [facility] as the local urologist was not on-call. Dr. Urena the urologist on-call for [facility] suggested that the patient either follow up with the urologist in and a [place] if they were comfortable dealing with a renal biopsy or that the patient could call [facility] in the next week and be seen by urologic oncology for excision of his mass and biopsy. Meanwhile the patient was admitted to medicine to Dr. Mcdonnell. Orders Ordered: Acetaminophen (Acetaminophen 325 Mg Tablet) 650 mg PO Q6H PRN PRN Reason: Fever/Mild Pain (1-3) Hydrocodone Bitart/Acetaminophen (Hydrocodone/Acet 5/325 Tablet) 1 tab PO Q4H PRN PRN Reason: Pain, Moderate (4-6) Enoxaparin Sodium (Enoxaparin 40 Mg/0.4 Ml Syringe) 40 mg SUBCUT DAILY GOPI Sodium Chloride (Normal Saline 0.45%) 1,000 mls @ 100 mls/hr IV CONT GOPI Last Admin: 08/19/24 16:23 Dose: 100 mls/hr Documented By: JORGE LUIS Piperacillin Sod/Tazobactam (Sod 3.375 gm/ Sodium Chloride) 100 mls @ 25 mls/hr IV Q8H GOPI Last Admin: 08/19/24 16:23 Dose: 25 mls/hr Documented By: JORGE LUIS Dextrose (D10w) 100 mls @ 999 mls/hr IV PRN PRN PRN Reason: Hypoglycemia Insulin Human Lispro (Insulin Lispro 100 Unit/Ml 3ml Vial) 0 unit SUBCUT ACHS [facility]; Protocol Last Admin: 08/19/24 17:38 Dose: 5 unit Documented By: JORGE LUIS Co-signed By: Lisinopril (Lisinopril 20 Mg Tablet) 20 mg PO DAILY [facility] Naloxone HCl (Naloxone 0.4 Mg/Ml Vial) 0.2 mg IV Q2MIN PRN PRN Reason: Opiate Reversal Ondansetron HCl (Ondansetron 4 Mg/2 Ml Inj) 4 mg IV NOW PRN PRN Reason: Nausea And Vomiting Ondansetron HCl (Ondansetron 4 Mg Odt) 4 mg PO NOW PRN PRN Reason: Nausea And Vomiting Ondansetron HCl (Ondansetron 4 Mg/2 Ml Inj) 4 mg IV Q8HR PRN PRN Reason: Nausea And Vomiting Sodium Chloride (Sodium Chloride 0.9% Flush) 10 ml IV PRN PRN PRN Reason: Flush Sodium Chloride (Sodium Chloride 0.9% Flush) 10 ml IV BID [facility] Discontinued Medications Sodium Chloride (Normal Saline 0.9%) 1,000 mls @ 1,000 mls/hr IV BOLUS ONE Stop: 08/19/24 11:22 Last Infusion: 08/19/24 11:57 Dose: Infused Documented By: Admin: 08/19/24 10:47 Dose: 1,000 mls/hr Documented By: JACKELINE Ampicillin Sodium/Sulbactam (Sodium 3 gm/ Sodium Chloride) 100 mls @ 200 mls/hr IV NOW ONE Stop: 08/19/24 14:14 Last Infusion: 08/19/24 14:31 Dose: Infused Documented By: Admin: 08/19/24 13:42 Dose: 200 mls/hr Documented By: ADILSON Ketorolac Tromethamine (Ketorolac 30 Mg/Ml Vial) 30 mg IV NOW ONE Stop: 08/19/24 10:24 Last Admin: 08/19/24 10:47 Dose: 30 mg Documented By: JACKELINE Vital Signs Vital signs: Vital Signs - 8 hr 08/19/24 13:34 08/19/24 13:34 08/19/24 14:00 Pulse Rate 76 Blood Pressure 158/86 H 163/101 H Pulse Oximetry 96 08/19/24 14:00 08/19/24 14:30 08/19/24 14:30 Pulse Rate 81 77 Blood Pressure 165/94 H Pulse Oximetry 97 96 MDM - Abdominal Pain Medical Records Attestation: I reviewed the patient's medical records. Medical records narrative: Differential includes acute diverticulitis versus ureteral stone versus urinary tract infection versus epiploic appendagitis. It was concluded for any appearance of the patient's CT of the abdomen and pelvis that he indeed had acute diverticulitis. He was treated as above. Lab Data 08/19/24 08:53 08/19/24 08:53 Labs: Lab Results 08/19/24 08/19/24 Range/Units 08:53 09:30 WBC 17.8 H (4.5-11.0) X10^3/uL RBC 5.71 (4.5-5.9) X10^6/uL Hgb 16.4 (13.5-17.5) g/dL Hct 47.5 (41-53) % MCV 83.2 (80-100) fL MCH 28.7 (26-34) PG MCHC 34.4 (30-36) % RDW 13.7 (11.6-14.8) % Plt Count 291 (150-400) X10^3/uL Neut % (Auto) 70.0 (50-75) % Lymph % (Auto) 20.5 L (25-40) % [place] % (Auto) 7.0 (3-14) % Eos % (Auto) 1.4 L (2-4) % Baso % (Auto) 1.1 (0-2) % Neut # (Auto) 01079 H (6030-2819) /uL Lymph # (Auto) 3700 (3973-0522) /uL [place] # (Auto) 1200 H (0-900) /uL Eos # (Auto) 200 (0-450) /uL Baso # (Auto) 200 H (0-100) /uL Sodium 137 (137-145) mmol/L Potassium 4.0 (3.4-5.1) mmol/L Chloride 100 (98-107) mmol/L Carbon Dioxide 24 (22-32) mmol/L BUN 12 (9-20) mg/dL Creatinine 0.79 (0.66-1.25) mg/dL Estimated GFR > 60 (>60) mL/min BUN/Creatinine Ratio 15.2 (6-22) Glucose 204 H (70-99) mg/dL Calcium 9.7 (8.4-10.2) mg/dL Total Bilirubin 1.1 (0.2-1.3) mg/dL AST 60 H (17-59) IU/L ALT 90 H (<50) IU/L Alkaline Phosphatase 133 H (38-126) U/L Total Protein 9.0 H (6.3-8.2) g/dL Albumin 5.0 (3.5-5.0) g/dL Globulin 4.0 (1.7-4.1) g/dL Albumin/Globulin Ratio 1.3 (1.0-2.8) Lipase 111 (23-300) U/L Urine RBC 0-1/hpf (0-5/HPF) Urine WBC 0-1/hpf (0-5/HPF) Ur Squamous Epith Cells 0-1 /hpf (0-5/HPF) Urine Bacteria None seen (None) Ur Culture Indicated? Cult not indicated Vol Urine Centrifuged 10ml (spun) Point of care testing: Point of Care Testing Glucose POC 266 Urine Dip Bedside Urine Glucose Negative Bedside Urine Bilirubin - Negative Bedside Urine Ketone - Negative Urine Specific [place] 1.020 Bedside Urine Occult Blood +/- Bedside Urine pH 6.0 Bedside Urine Protein +/- 15 Bedside Urine Urobilinogen - Negative Bedside Urine Nitrite - Negative Bedside Urine Leukocytes - Negative Esterase Discharge Plan Departure Patient Disposition: Admitted As Inpatient Clinical Impression: Acute diverticulitis, Kidney mass Admit Date/Time: 08/19/24 15:13 Admit Provider: Christian Mcdonnell
[2024-08-19] MEDS: SODIUM CHLORIDE 0.9% FLUSH 10 ML IV (20:34)
[2024-08-20 00:39] VITALS: BP 146/88; PULSE 77; RESP 19; TEMP 36.7; O2SAT 96
[2024-08-20 05:07] LABS: Add Manual Diff / Slide Review NO; Basophils Absolute Auto 100 /uL (0-100); Basophils Percent Auto 0.6 % (0-2); Eosinophils Absolute Auto 300 /uL (0-450); Eosinophils Percent Auto 2.6 % (2-4); Hematocrit 42.3 % (41-53); Hemoglobin 14.5 g/dL (13.5-17.5); Lymphocytes Absolute Auto 2500 /uL (1100-4500); Mean Corpuscular HGB Conc 34.2 % (30-36); Mean Corpuscular Hemoglobin 28.5 PG (26-34); Mean Corpuscular Volume 83.4 fL (80-100); Monocytes Absolute Auto 1200 /uL (0-900); Monocytes Percent Auto 8.8 % (3-14); Neutrophils Absolute Auto 9600 /uL (1500-7000); Platelet Count 255 X10^3/uL (150-400); Red Blood Cell Count 5.07 X10^6/uL (4.5-5.9); Red Cell Distribution Width 13.8 % (11.6-14.8); White Blood Cell Count 13.7 X10^3/uL (4.5-11.0)
[2024-08-20 05:18] LABS: Alanine Aminotransferase 63 IU/L (<50); Albumin 4.2 g/dL (3.5-5.0); Albumin Globulin Ratio 1.4 (1.0-2.8); Alkaline Phosphatase 109 U/L (38-126); Aspartate Aminotransferase 37 IU/L (17-59); BUN Creatinine Ratio 15.6 (6-22); Bilirubin Total 1.1 mg/dL (0.2-1.3); Blood Urea Nitrogen 12 mg/dL (9-20); Calcium 8.9 mg/dL (8.4-10.2); Carbon Dioxide 23 mmol/L (22-32); Chloride 105 mmol/L (98-107); Estimated Glomerular Filt Rate > 60 mL/min (>60); Glucose 153 mg/dL (70-99); HEMOLYSIS < 15 (0-50); Potassium 4.2 mmol/L (3.4-5.1); Sodium 137 mmol/L (137-145); Total Protein 7.2 g/dL (6.3-8.2)
[2024-08-20 05:34] VITALS: BP 140/78; PULSE 86; RESP 17; TEMP 37.1; O2SAT 99
[2024-08-20 08:15] VITALS: BP 138/90; PULSE 80; RESP 20; TEMP 36; O2SAT 95
[2024-08-20 08:23] VITALS: BP 138/90; PULSE 90
[2024-08-20] MEDS: lisinopriL 20 MG TABLET PO (08:23)
[2024-08-20] MEDS: PIPERACILLIN/TAZO 3.375 GM in SODIUM CHLORIDE 0.9% 100 ML IV (08:24)
[2024-08-20] MEDS: ENOXAPARIN 40 MG/0.4 ML SYRINGE SUBCUT (08:24)
[2024-08-20] MEDS: INSULIN LISPRO 100 UNIT/ML 3ML VIAL SUBCUT ×2 (08:24→12:29)
--- NOTE | 2024-08-20 09:15 | P.DS_ITS ---
History of Present Illness History of Present Illness Chief complaint: Stomach issues, possible diverticulitis Narrative: 43-year-old male who comes in today from the emergency department with sudden onset of abdominal pain he was in his normal state of health yesterday. Feeling just fine. Last evening he began to have left lower quadrant abdominal pain moderate to severe in intensity felt like a knife-like stabbing pain in his lower abdomen there was radiation through his abdomen up into his chest. Pain was on and off throughout the night he said he did not sleep well. Patient states was a little bit and nauseated but did not throw up. He has had normal bowel movements. Patient did not feel hungry. He says he did not have a fever. Patient had similar pain symptoms in May this year with a diagnosis of diverticulosis. He was treated him with antibiotics at this time. On the emergency department his blood pressure was a little bit elevated he was afebrile patient has an elevated white blood cell count 17.8. Patient had a glucose of 204 patient had elevation of his liver enzymes. Patient had a CT scan done which shows recurrent diverticulosis or epiploic appendagitis patient also has a left renal mass likely renal cell carcinoma 4 cm in diameter because of patient's white blood cell count discomfort and CT scan findings he was admitted to the hospital. Discharge Providers Provider Date of admission: 08/19/24 15:13 Discharge Date: 08/20/24 Primary care physician: Christian Mcdonnell MD Discharge provider: Christian Mcdonnell MD Summary Hospital Course Discharge Diagnosis: Acute diverticulitis Left renal cell mass possible renal cell carcinoma Diabetes type 2 Hypertension Hospital Course: Patient was admitted to the hospital after left lower quadrant abdominal pain CT scan findings consistent with diverticulitis. Because of elevation white blood cell count pain and symptoms he was admitted further to the hospital. On CT scanning they also found he had a renal cell mass 4 cm in size without lymphadenopathy other signs consistent with spread. Patient was admitted to the hospital started on IV antibiotics he had monitoring of his vital signs he was tolerating the soft diet. Over the ensuing 24 hours his pain improved. Tolerating antibiotics he is ambulating back and forth to the bathroom. Urology was consulted by phone for his renal cell mass. They recommended outpatient follow-up and we will arrange that. Exam Vital Signs (past 8 hours): - 08/20/24 05:34 08/20/24 08:15 08/20/24 08:23 Temperature 98.8 F 96.8 F L Pulse Rate 86 80 90 Respiratory Rate 17 20 Blood Pressure 140/78 138/90 138/90 Pulse Oximetry 99 95 Oxygen Flow Rate 0 0 Oxygen Delivery Method Room Air Oxygen Flow Rate 0 Narrative Exam Narrative: Gen.: Alert and oriented x3 no apparent distress. HEENT: NCAT PERRLA tympanic membranes are clear nares are patent oral mucosa is moist no tonsillar hypertrophy neck is supple without lymphadenopathy no thyroid enlargement. Cardio: S1-S2 regular rate and rhythm no murmurs appreciated. Respiratory: Lungs are clear to auscultation no wheezes or crackles normal respiratory effort. Abdomen: Soft nontender no rebound or guarding no liver spleen enlargement no appreciable hernias Extremities: Full range of motion no appreciable weakness no cyanosis or edema. Neurologic: Grossly intact. Objective Labs 08/20/24 04:45 08/20/24 04:45 Labs: Laboratory Results - last 24 hr 08/19/24 08/19/24 08/19/24 08:53 09:30 17:46 WBC RBC Hgb Hct MCV MCH MCHC RDW Plt Count Neut % (Auto) Lymph % (Auto) [place] % (Auto) Eos % (Auto) Baso % (Auto) Neut # (Auto) Lymph # (Auto) [place] # (Auto) Eos # (Auto) Baso # (Auto) Sodium 137 Potassium 4.0 Chloride 100 Carbon Dioxide 24 BUN 12 Creatinine 0.79 Estimated GFR > 60 BUN/Creatinine Ratio 15.2 Glucose 204 H Hemoglobin A1c 7.8 H Calcium 9.7 Total Bilirubin 1.1 AST 60 H ALT 90 H Alkaline Phosphatase 133 H Total Protein 9.0 H Albumin 5.0 Globulin 4.0 Albumin/Globulin Ratio 1.3 Lipase 111 Urine RBC 0-1/hpf Urine WBC 0-1/hpf Ur Squamous Epith Cells 0-1 /hpf Urine Bacteria None seen Ur Culture Indicated? Cult not indicated Vol Urine Centrifuged 10ml (spun) 08/20/24 04:45 WBC 13.7 H RBC 5.07 Hgb 14.5 Hct 42.3 MCV 83.4 MCH 28.5 MCHC 34.2 RDW 13.8 Plt Count 255 Neut % (Auto) 70.0 Lymph % (Auto) 18.0 L [place] % (Auto) 8.8 Eos % (Auto) 2.6 Baso % (Auto) 0.6 Neut # (Auto) 9600 H Lymph # (Auto) 2500 [place] # (Auto) 1200 H Eos # (Auto) 300 Baso # (Auto) 100 Sodium 137 Potassium 4.2 Chloride 105 Carbon Dioxide 23 BUN 12 Creatinine 0.77 Estimated GFR > 60 BUN/Creatinine Ratio 15.6 Glucose 153 H Hemoglobin A1c Calcium 8.9 Total Bilirubin 1.1 AST 37 ALT 63 H Alkaline Phosphatase 109 Total Protein 7.2 Albumin 4.2 Globulin 3.0 Albumin/Globulin Ratio 1.4 Lipase Urine RBC Urine WBC Ur Squamous Epith Cells Urine Bacteria Ur Culture Indicated? Vol Urine Centrifuged [facility] Medical History Diverticulitis Family History Mother Hypertension DDD (degenerative disc disease) Social History marital status: household members: spouse Smoking Status: Current some day smoker alcohol intake: former substance use type: does not use Discharge Plan Discharge Plan Patient Disposition: Home Provider Discharge Comment: Patient will be discharged home with soft more liquid diet. He will be placed on Augmentin 875 b.i.d.. Patient will have follow-up in 10 days. Patient will need a follow-up appointment with Urology Dr. Guerrero for renal cell mass Discharge orders & Medications Prescriptions: New amoxicillin-pot clavulanate 875-125 mg tablet 1 tab PO BID Qty: 20 0RF lisinopril 20 mg tablet 20 mg PO DAILY Qty: 30 1RF metformin 500 mg tablet 500 mg PO BID Qty: 60 1RF Continued Gas Relief (simethicone) 40 mg Tablet,Chewable 40 mg PO DAILY Follow up/Referrals: Christian Mcdonnell MD [Primary Care Provider] - Visit Report/Discharge Packet Stand Alone Forms: Patient Portal/API, Stroke Signs & Symptoms Discharge Data Primary Care Provider: Christian Mcdonnell PROFEE Charge Codes Discharge inpatient/observation: [id number]
--- NOTE | 2024-08-20 13:46 | PC.NURSE ---
Disharge: Pt agreeable to discharge. Spouse picked up medications from pharmacy, education provided to pt and spouse on new medications, continuation of antibiotics, follow up with Dr. Mcdonnell, and referral to Dr. Monte with urology. IV discontinued after completion of antibiotics, Pt dressed. Pt wheeled via w/c to private vehicle at approximately 1330.
--- NOTE | 2024-08-20 14:08 | CM.DANOTE ---
Discharge Planning/Care Management CM Discharge Assessment Start: 08/20/24 14:03 Freq: Status: Discharge Protocol: Document 08/20/24 14:05 TIFFANY (Rec: 08/20/24 14:07 TIFFANY [id number]) Discharge Planning Assessment Assigned Time Study Analyst CAMPBELL Goodman DPOA/Assigned Designee Name Petra Collins (spouse) Contact Information [phone] Advance Directives? No History Provided By Medical Record Has Patient been admitted in last 30 No days? Prior Living Arrangements House Household Members spouse Type of transporation used prior to Drives own vehicle admit Independent with ADL's Yes Is patient alert and oriented? Yes Barriers to Discharge No Discharge Plan Home Transportation Arrangement Family Referrals Initiated None needed
== END 2024-08-20 13:30 | disposition home or self-care (01) | DRG 392 ==
LOC: ED 09:50 → AC 15:13
PROVIDERS: Admitting Provider Family Medicine; Emergency Provider Emergency Medicine; Family Provider Family Medicine; PCP Family Medicine; Referring Provider Emergency Medicine; Visit Provider Family Medicine
DX: K57.32 Diverticulitis of large intestine without perforation or abscess without bleeding (principal); C64.2 Malignant neoplasm of left kidney, except renal pelvis; I10 Essential (primary) hypertension; E11.9 Type 2 diabetes mellitus without complications; F17.200 Nicotine dependence, unspecified, uncomplicated; Z82.49 Family history of ischemic heart disease and other diseases of the circulatory system
CPT/HCPCS: 36415; 74177; 80053; 81003; 81015; 82962; 83036; 83690; 85025; 96361; 96365; 96375; 99223; 99238; 99284; J0295; J1650; J1815; J1885; J2543; J7050; Q9967

== ENCOUNTER → 2024-08-30 11:58 | Outpatient (CLI) | payer OTHER, SELFPAY ==
[2024-08-23 16:27] VITALS: BMI 37.3
--- NOTE | 2024-08-30 12:00 | DI.RAD.S_ITS ---
PROCEDURE: XR CHEST 2V INDICATIONS: 43 y/o M w/ left renal mass, eval for mets TECHNIQUE: 2 views of the chest were acquired. COMPARISON: Located Within [facility], , CHEST 1 VIEW, 11/26/2014, 8:49. FINDINGS: Surgical changes and devices: None. Lungs and pleura: Lungs are clear. No pleural effusions or pneumothorax. Mediastinum: Mediastinal contours are normal. Heart size is normal. Bones and chest wall: No suspicious bony abnormalities. Soft tissues appear unremarkable. IMPRESSION: No acute cardiopulmonary abnormality is seen. Dictated by: Sergio Bennett M.D. on 08/30/2024 at 23:56 Approved by: Sergio Bennett M.D. on 08/30/2024 at 23:56
== END ==
PROVIDERS: Family Provider Family Medicine; PCP Family Medicine; Referring Provider Family Medicine; Visit Provider Urology
DX: N28.89 Other specified disorders of kidney and ureter (principal)
CPT/HCPCS: 71046

== ENCOUNTER → 2024-10-27 12:19 | Outpatient (CLI) | payer OTHER, SELFPAY ==
[2024-08-23 16:27] VITALS: BMI 37.3
[2024-10-27 21:27] LABS: Appearance Urine UA SL CLOUDY; Bilirubin Urine UA NEGATIVE (NEGATIVE); Color Urine UA YELLOW; Glucose Urine UA NEGATIVE (Negative); Ketones Urine UA NEGATIVE (NEGATIVE); Leukocyte Esterase Urine UA NEGATIVE (NEGATIVE); Nitrite Urine UA NEGATIVE (Negative); Occult Blood Urine UA NEGATIVE (Negative); Protein Urine UA NEGATIVE (Negative); Specific Gravity Urine UA 1.010 (1.000-1.035); Urobilinogen Urine UA 0.2 E.U./dL (0.2); pH Urine UA 7.0 (4.5-8.0)
[2024-10-27 21:34] LABS: Culture Indicated Urine Cult Not Indicated
== END ==
PROVIDERS: Family Provider Family Medicine; PCP Family Medicine
DX: E11.9 Type 2 diabetes mellitus without complications (principal); Z13.220 Encounter for screening for lipoid disorders; I10 Essential (primary) hypertension
CPT/HCPCS: 81001; 82043; 82570